=== PATIENT | male | born 2000 | race Two or more races ===

== ENCOUNTER 2024-10-15 07:04 | Emergency (ER) | payer OTHER, SELFPAY ==
[2024-10-15 07:07] VITALS: BP 138/60; PULSE 93; RESP 16; TEMP 36.6; O2SAT 99; BMI 36.3
--- NOTE | 2024-10-15 07:25 | ED.GENADULT ---
HPI - General Adult General Chief complaint: Eye Problems Stated complaint: red eyes, dry mouth Time Seen by Provider: 10/15/24 07:25 History of Present Illness ED Provider: Shaylee GUTIERREZ narrative: The patient is ordinarily healthy 24-year-old male who says that he has felt unwell for about 2 days. He has had some nasal congestion and he has also developed some redness to his eyes. He does not really feel itchy. He has had no visual changes. No significant sore throat. No significant cough. No definite fever. Related Data Allergies Allergy/AdvReac Type Severity Reaction Status Date / Time SEAFOOD Allergy Intermediate HEAD PAIN Uncoded 10/15/24 07:08 AND EYES TURN RED Review of Systems Review of Systems: Yes all other systems are reviewed and are negative [facility] Social History Social History Advance Directives: No Advance Directives Information Provided: No Physical Exam ED Vital Signs: Vital Signs - 24 hr 10/15/24 07:07 10/15/24 07:56 Temperature 97.8 F 97.8 F Pulse Rate 93 93 Respiratory Rate 16 16 Blood Pressure 138/60 138/60 Pulse Oximetry 99 99 Oxygen Delivery Method Room Air Room Air BMI result Body Mass Index 36.3 Const Other: The patient is awake, alert, pleasant, cooperative. He looks as though he is an ordinarily healthy 24-year-old. He has obvious conjunctival injection of both eyes. HENMT Other: Face is symmetrical. Mucous membranes are moist. The posterior pharynx appears normal. There was no erythema or exudate. Tympanic membranes are normal bilaterally. Eyes Other: There is bilateral conjunctival injection. Pupils are round equal and reactive. Extraocular movements are intact. There is no exudate. Corneas look clear. Neck Other: No cervical adenopathy Resp Effort & Inspection: normal respiratory effort Auscultation: clear to auscultation bilaterally Cardio Rate: regular rate Rhythm: regular rhythm Heart sounds: S1 normal heart sound present and S2 normal heart sound present Skin Other: Skin is dry and unremarkable. No rashes or lesions. Neuro Other: The patient is awake and alert with a normal mental status. Cranial nerves 2-12 are intact. He moves extremities normally and appropriately. He seems entirely neurologically intact. Medications Administered Discontinued Medications Generic Name Dose Route Start Last Admin Trade Name Freq PRN Reason Stop Dose Admin Loratadine 10 mg 10/15/24 07:32 10/15/24 07:43 Loratadine 10 Mg Tablet PO 10/15/24 07:33 10 mg ONCE ONE Administration Medical Decision Making Medical Decision Making [facility] Narrative: The patient is a healthy 24-year-old who presents with complaints of nasal congestion and bilateral eye redness. I think this is likely a viral syndrome with bilateral viral conjunctivitis. My suspicion for a more ominous process is very low. He will be given reassurance and viral instructions. He should return if worse. A viral swab was sent which resulted after the patient's discharge. He has tested positive for COVID. I was able to call the patient on his cell phone and informed him of this. I advised him to wear a mask and to contact his employer. Lab Data Labs: Lab Results 10/15/24 Range/Units 07:42 Influenza Type A (PCR) NEGATIVE (Negative) Influenza Type B (PCR) NEGATIVE (Negative) RSV RNA Qual (PCR) NEGATIVE (Negative) SARS-CoV-2 RNA (RT-PCR) POSITIVE A (Negative) Discharge Plan Discharge Clinical Impression: Acute viral conjunctivitis, COVID Patient Disposition: Home, Self-Care Instructions: Conjunctivitis (ED) Additional Instructions: I think that the redness in your eyes is part of a viral illness like a cold. I do not think antibiotics will help. I think that you will likely get better in a few days. You may use antihistamines like loratadine (an [id number] medication) for your symptoms. This may help somewhat. Drink a lot of fluids. Please work on getting a primary care doctor. Return to the emergency room if you feel significantly worse. Interventions: ED Discharge Assessment Last Done: 10/15/24 07:56 Discharge Date/Time: 10/15/24 07:57 Print Language: Irish
[2024-10-15] MEDS: Loratadine 10 MG TABLET PO (07:43)
[2024-10-15 07:56] VITALS: BP 138/60; PULSE 93; RESP 16; TEMP 36.6; O2SAT 99
[2024-10-15 08:24] LABS: Influenza A PCR NEGATIVE (Negative); Influenza B PCR NEGATIVE (Negative); Resp Syncy Virus RNA Qual PCR NEGATIVE (Negative); SARS COV2 PCR INHOUSE POSITIVE (Negative)
== END 2024-10-15 07:57 | disposition home or self-care (01) ==
LOC: HO.ED 07:43
PROVIDERS: Emergency Provider Emergency Medicine
DX: U07.1 COVID-19 (principal); H10.33 Unspecified acute conjunctivitis, bilateral
CPT/HCPCS: 0241U; 99283